=== PATIENT | male | born 1940 | race African-American/Black ===

== ENCOUNTER 2018-01-15 15:55 | Inpatient (IN) | payer MEDICARE, OTHER ==
--- NOTE | 2018-01-15 16:26 | CT ---
NONCONTRAST CT HEAD: 01/15/18 HISTORY: Left facial droop and weakness. COMPARISON: None available. FINDINGS: There is a rounded area of increased density centrally within the michael extending to the level of the pontomedullary junction measuring 2 cm x 1.8 cm most consistent with a hematoma. No additional intra parenchymal or extra-axial hemorrhage is seen. There is no evidence of an acute infarction. There is mild mass effect on the anterior aspect of the fourth ventricle due to the parenchymal hemorrhage. Th ere is no evidence of hydrocephalus. Mild cerebral volume loss is present, not unexpected for the pat ient's age. The visualized paranasal sinuses and mastoid air cells are clear. Calvarial structures are intact. IMPRESSION: 1. Parenchymal hemorrhage in the michael which extends to near the pontomedullary junction with gr eatest measurement of 2 cm. While findings could be related to hypertensive hemorrhage, underlying le rock could not be entirely excluded. The findings do result in mild mass effect on the anterior aspec t of the fourth ventricle. Neurosurgical consultation is recommended. 2. Above findings discussed with Dr. Frazier on 01/15/18 at 1606 hours. POS: [facility]
[2018-01-15 16:38] LABS: #Basophils 0.1 thou/uL (0.0-0.2); #Eosinphils 0.1 thou/uL (0.0-0.7); #Lymphocytes 2.1 thou/uL (1.20-3.40); #Monocytes 0.4 thou/uL (0.11-0.59); #Neutrophils 1.7 thou/uL (1.40-6.50); %Eosinophils 3.1 % (0.0-10.0); %Lymphocytes 47.5 % (21.0-51.0); %Neutrophils 38.4 % (42.0-75.0); Hemoglobin 16.8 g/dL (14.0-18.0); Mean Corpuscular HGB CONC 33.6 g/dL (32.0-36.0); Mean Corpuscular Hemoglobin 30.8 pg (27.0-31.0); Mean Corpuscular Volume 91.8 fL (78.0-98.0); Mean Platelet Volume 7.4 fL (7.4-10.4); Platelet Count 211 thou/uL (130-400); RBC Distribution Width 11.6 % (11.5-14.5); Red Blood Cell (RBC) Count 5.45 mill/uL (4.70-6.10); White Blood Cell (WBC) Count 4.4 thou/uL (4.8-10.8)
--- NOTE | 2018-01-15 16:42 | RAD ---
PORTABLE AP CHEST: Date: 01/15/18 HISTORY: Left-sided weakness and left facial droop. COMPARISON: None available. FINDINGS: Cardiac silhouette is magnified by projection and patient rotation. There is mild atelectasis at the left lung base. Lungs are otherwise clear. Pulmonary vasculature is within normal limits. There is pr ominence in the mediastinal structures, but this likely related to the technique and shallow depth of inspiration accentuating these structures. Mild degenerative changes seen in the spine. IMPRESSION: 1. No acute cardiopulmonary process. 2. Mild atelectasis left lung base. POS: [facility]
[2018-01-15 16:43] LABS: Prothrombin Time 13.1 SEC (12.0-14.7)
[2018-01-15 16:44] LABS: PTT 30.1 SEC (22.9-36.1)
[2018-01-15 16:46] LABS: ALT (SGPT) 15 U/L (8-55); AST (SGOT) 19 U/L (5-34); Albumin 4.2 g/dL (3.4-4.8); Alkaline Phosphatase 93 U/L (40-150); Anion Gap 14 mmol/L (10-20); BUN (Urea Nitrogen) 17 mg/dL (8.4-25.7); Bilirubin, Total 0.5 mg/dL (0.2-1.2); Calc. Creatinine Clearance 0 mL/min (70-130); Calcium 9.7 mg/dL (7.8-10.44); Carbon Dioxide 22 mmol/L (23-31); Chloride 105 mmol/L (98-107); Estimated GFR-MDRD 64; Globulin 3.1 g/dL (2.4-3.5); Glucose 90 mg/dL (83-110); Potassium 3.9 mmol/L (3.5-5.1); Protein, Total 7.3 g/dL (5.8-8.1); Sodium 137 mmol/L (136-145)
[2018-01-15 16:51] LABS: CKMB 5.8 ng/mL (0-6.6); Troponin I Less than 0.010 ng/mL (< 0.028)
[2018-01-15] MEDS ORDERED: Bisacodyl 10 MG SUPP PR PRN (22:54)
[2018-01-15] MEDS ORDERED: Milk Of Magnesia 30 ML UDCUP PO PRN (22:54)
[2018-01-15] MEDS ORDERED: Mag-Al Plus 1200 MG/1200 MG/120 MG/30 ML UDCUP PO PRN (22:54)
[2018-01-15] MEDS ORDERED: Acetaminophen 325 MG TAB PO PRN (22:54)
[2018-01-15] MEDS ORDERED: niCARdipine HCl 25 MG in Sodium Chloride 0.9% 250 ML 240 ML IVPB SCH (23:00)
--- NOTE | 2018-01-16 02:38 | CON ---
DATE OF CONSULTATION: 01/15/2018 HISTORY OF PRESENT ILLNESS: Mr. Verdin is a 77-year-old male, who was life-flighted to our emergency room for altered mental status and possible stroke. The patient's states that last night they had a regular evening. The patient was working on a fence for a friend, they had dinner, went to bed normally. They had a conversation at 5:00 a.m. that was normal. She got up and went about her morn ing as normal, came to check on him a few hours later and he was on the floor. The patient had told her that he had lost function of his extremities and had slid onto the floor. He denies any head or neck injury. The patient did not want to go to the emergency room at this time; however, his symptom s got worse and his called EMS. The patient was life-flighted and is now in our ER, he is resti ng comfortably. He has slurred speech and new decreased hearing. He does have right-sided facial dr ooping along with decreased sensation and movement with left-side both upper and lower extremities. REVIEW OF SYSTEMS: Positive for decreased hearing and slurred speech, new numbness and weakness in t he left upper extremity. PAST MEDICAL HISTORY: The patient denies any past medical history. PAST SURGICAL HISTORY: The patient had a liver biopsy and an orthopedic surgery on the right leg. SOCIAL HISTORY: The patient currently smokes cigarettes daily, approximately half a pack a day. He denies any alcohol or other drug use. He lives with his and they have an active life together w here they live. The patient has been driving safely. He does not use a walker or a cane. The patie nt has 2 children and one that is his 's child. MEDICATIONS: The patient denies any medications. ALLERGIES: The patient denies any known drug allergies. PHYSICAL EXAMINATION: VITAL SIGNS: Blood pressure 137/85, heart rate 58, respiratory rate 16, temperature 97.9, O2 sats 10 0% on room air. CONSTITUTIONAL: The patient is afebrile, pulse is normal, blood pressure is normal. The patient is nontoxic, appears to be pain free. The patient is alert and oriented to person, place, and time. HEAD: Atraumatic, normocephalic. EYES: Pupils are equal, round, and reactive to light. Extraocular movements are intact. No nystagm us. ENT: External ears are normal. Subjectively, the patient has decreased hearing. Mouth, moist mucou s membranes. RESPIRATORY: Regular work of breathing room air. CARDIOVASCULAR: Regular rate and rhythm. NEUROLOGIC: Speech is slurred. There is right-sided facial weakness and droop. The patient has dec reased sensation in the left upper and lower extremities. There is 4/5 weakness on the left. The pa tient is positive for left-sided pronator drift with the right preference. The patient's cranial ner ves II-XII are intact. GCS 15. The patient is moving all 4 extremities. IMAGING: CT head shows a parenchymal hemorrhage in the michael that extends to near the pontomedullary junction with greatest measurement of 2 cm. The findings do result in mild mass effect in the anteri or aspect of the fourth ventricle. ASSESSMENT AND PLAN: Parenchymal hemorrhage of the michael. There is no surgical intervention needed a t this time. We will control the patient's blood pressure. We will keep him comfortable. We will m onitor neuro checks throughout the night and we will get another CT in the morning.
[2018-01-16 04:39] LABS: #Lymphocytes 0.8 thou/uL (1.20-3.40); #Monocytes 0.3 thou/uL (0.11-0.59); #Neutrophils 6.3 thou/uL (1.40-6.50); %Eosinophils 0.3 % (0.0-10.0); %Lymphocytes 10.2 % (21.0-51.0); %Monocytes 3.5 % (0.0-10.0); %Neutrophils 85.9 % (42.0-75.0); Mean Corpuscular HGB CONC 34.6 g/dL (32.0-36.0); Mean Corpuscular Hemoglobin 31.9 pg (27.0-31.0); Mean Corpuscular Volume 92.1 fL (78.0-98.0); Mean Platelet Volume 7.5 fL (7.4-10.4); Platelet Count 205 thou/uL (130-400); RBC Distribution Width 11.5 % (11.5-14.5); Red Blood Cell (RBC) Count 5.03 mill/uL (4.70-6.10); White Blood Cell (WBC) Count 7.4 thou/uL (4.8-10.8)
[2018-01-16] MEDS ORDERED: Prevnar 13-Val Conj/PF 0.5 ML SYRINGE IM ONE (09:00)
--- NOTE | 2018-01-16 09:05 | CT ---
PRELIMINARY REPORT/[facility]/EMERGENTY AFTER-HOURS PROCEDURE CT Head Without Intravenous Contrast EXAM DATE/TIME: 01/16/2018 3:39 AM CLINICAL HISTORY: 77 years old, male; Condition or disease; Other: Hemorrhage; Patient HX: F/u parenchymal hemorrhage TECHNIQUE: Axial computed tomography images of the head/brain without intravenous contrast. COMPARISON: CT Brain WO Con 2018-01-15 15:59 FINDINGS: Brain: Stable 2.5 cm intraparenchymal brainstem hematoma. No new hemorrhage. Mild generalized volume loss of the brain. Ventricles: Normal. No ventriculomegaly. Bones/joints: Normal. No acute fracture. Sinuses: Normal as visualized. No acute sinusitis. Mastoid air cells: Normal as visualized. No mastoid effusion. Soft tissues: Normal. IMPRESSION: Stable 2.5 cm intraparenchymal brainstem hematoma. Thank you for allowing us to participate in the care of your patient. Dictated and Authenticated by: Chandan Valera MD 01/16/2018 5:39 AM Central Time ([place] & [place]) EMERGENT AFTER HOURS CT HEAD: 01/16/2018 HISTORY: Followup intraparenchymal hemorrhage. COMPARISON: 01/15/2018 IMPRESSION: Stable intraparenchymal hemorrhage within the michael and extending to level of the pontomedullary junct ion. No new intraparenchymal or extraaxial hemorrhage is seen. The findings are in agreement with the preliminary report by Gayle. POS: [facility]
--- NOTE | 2018-01-16 10:57 | PRG ---
DATE OF SERVICE: 01/16/2018 I personally interviewed and examined the patient, spoke with the family, reviewed imaging and record s and agree with documentation of Precious Goodwin PA-C, dated 01/15/2018. Briefly, Ricci Verdin was in his usual state of health yesterday when he had neurological decline a nd was brought to the emergency department. In the emergency department, CT examination of the brain revealed a brainstem hemorrhage that was fairly round and circular, approaches the floor of the four th ventricle, centered just to the right of the midline in the mid michael. Overnight, we have watched him in the ICU with apparent medications for nausea, pain, and blood pressure control. He is not on any medicine at home according to the . Mr. Verdin's blood pressures have not elevated. Recorded pressures range from the 100s to the 130s o vernight. There is no fever recorded. His heart rate has been normal. As I entered during this mor griselda, I introduced myself, Mr. Verdin attempts to open his eyes. He has some down gaze preference. He can bring the eyes up to mid gaze. Cranial nerves are not working, including the ocular motor com plex of 3, 4, and 6. Face is weak on the right. The body is weak on the left. The patient can hear me speak and follow commands well. I have not tested lower cranial nerves [facility] Mr. Verdin is arousable, but sleeping. He has upper airway rhonchi. Our plan today is to ensure Mr. Verdin is at low risk for aspiration pneumonia or have Speech Therapy evaluate his swallow, and I do not think he is going to be able to pass today. We should talk to e family about tracheostomy and gastrostomy to prevent aspiration pneumonia. If the lower cranial ne rve function is involved in this hemorrhage, he will be at particular risk, although the blood clot s eems to be above the level of the medulla. His level of consciousness will also determine his safety . I am going to consult General Surgery and prepare them for the possible need for temporary tracheo stomy and gastrostomy. The hemorrhage itself is unlikely to become life-threatening. It is self-limited and stable on seria l CT scans and is not occluding the fourth ventricle that would result in hydrocephalus. The hemorrh age is in a configuration that reminds me of cavernous malformation hemorrhages in the brainstem. It impossible to tell if this is the case, while the blood products are in place. We will need to give it 3-4 weeks for the blood products to resolve themselves and then get an MRI scan. MRI scan can be done with and without contrast to ensure that this is not a tumor hemorrhage or metastasis from else where, but it is more likely to be a vascular malformation. Hypertensive hemorrhages can happen here as well, but his blood pressure has been relatively well controlled without any medication and he is not on any home antihypertensives. Neurosurgery team will continue to follow, but this nonsurgical brainstem hemorrhage can be managed i n the Medicine Service with a followup MRI scan done in our clinic.
--- NOTE | 2018-01-16 13:10 | CON ---
DATE OF CONSULTATION: 01/16/2018 REASON FOR CONSULTATION: Abnormal EKG and recent hemorrhagic stroke. HISTORY OF PRESENT ILLNESS: Mr. Verdin is a 77-year-old gentleman with no previous cardiac issues, w sera recently presented with a hemorrhagic stroke. He was seen and evaluated in the emergency room. Sana ambriz was found to have an abnormal EKG. I have discussed the case with the ER; she felt that it was con sistent with T waves. I did reassure her this is likely related to a recent stroke. After talking to patient and family, no previous history of chest pain, pressure, shortness of breath , or associated symptoms. No previous history of underlying coronary artery disease. PAST MEDICAL HISTORY: None. PAST SURGICAL HISTORY: None. SOCIAL HISTORY: Positive tobacco use. HOME MEDICATIONS: None. ALLERGIES: None. REVIEW OF SYSTEMS: A 10-point review of systems was reviewed and as above, otherwise negative. PHYSICAL EXAMINATION: VITAL SIGNS: Blood pressure 115/74, pulse 73, respirations 20. GENERAL: Patient is a pleasant male, who is in no acute distress. The patient appears his stated ag e. VITAL SIGNS: NEUROLOGIC: Right-sided weakness. Difficulty with speech. HEENT: Sclerae without icterus. Mouth has moist mucous membranes with normal pallor. NECK: No JVD. Carotid upstroke brisk. No bruits bilaterally. LUNGS: Clear to auscultation with unlabored respirations. BACK: No scoliosis or kyphosis. CARDIAC: Regular rate and rhythm with normal S1 and S2. No S3 or S4 noted. No significant rubs, mu rmurs, thrills, or gallops noted throughout the precordium. PMI is not displaced. There is no anne-marie ternal heave. ABDOMEN: Soft, nontender, nondistended. No peritoneal signs present. No hepatosplenomegaly. No ab normal striae. EXTREMITIES: 2+ femoral and 2+ dorsalis pedis pulses. No cyanosis, clubbing, or edema. SKIN: No gross abnormalities. PERTINENT LABORATORY DATA: Hemoglobin 16. Sodium 137, potassium 3.9, creatinine 1.32. EKG: Normal sinus rhythm with ST-T-wave changes suggesting ischemia. IMPRESSION: 1. Abnormal electrocardiogram. 2. Recent hemorrhagic stroke. 3. Tobacco abuse. RECOMMENDATIONS: Mr. Verdin's EKG likely secondary to a recent cerebrovascular accident. Symptoms n ot consistent with acute ischemia. Recommend echo with Doppler and repeating his EKG. Troponins have all been negative. I would contin ue with conservative therapy. Further recommendation per Neurosurgery.
--- NOTE | 2018-01-16 15:03 | CON ---
DATE OF CONSULTATION: 01/16/2018 SUBJECTIVE: Ricci Verdin is a 77-year-old -[place] gentleman from [place], [place] who kenyetta diana seeks care at the [facility]. He was found down at home yesterday. CT of the head shows large parenchymal hemorrhage in the michael extending to the nearby pontomedullary junction. In the ICU. Neurosurgery was consulted. Neurology was consulted. Pulmonary is consulted since in the ICU. His states that he smokes a half a pack a day. No history of alcohol abuse. Takes no medicatio n. He normally goes to the [facility] for care. At the present time, he has got slurred speech and some weakness in his left side. PAST MEDICAL HISTORY: Pertinent for some kind of orthopedic surgery done, some kind of liver biopsy. The is an extremely poor historian. Hypertension. PAST SURGICAL HISTORY: Noted. Alcohol, none. Tobacco, half pack a day. MEDICATIONS: None. ALLERGIES: Apparently none. SOCIAL HISTORY: He is a landscape michell. PHYSICAL EXAMINATION: GENERAL: On examination, he opens his eyes, unable to move his left side, slow speech. He has got f acial paralysis on his left side. VITAL SIGNS: Blood pressure 129/66, respiratory rate 20, satting . CHEST: No wheezing or crackles. CARDIAC: Normal S1, S2, no gallops. ABDOMEN: Soft, no masses. LABORATORY DATA: White count 7,000, hemoglobin and hematocrit 16 and 43, platelet count of 205. Cre atinine 1.32. IMAGING DATA: CT brain repeated this morning shows stable 2.5 cm intraparenchymal brainstem hematoma . IMPRESSION: Brainstem hematoma with left-sided weakness. Noted tobacco abuse. PLAN: Pulmonary will follow while in the ICU. Await input from Neurology. Await input from Speech. Control blood pressure as outlined. Pulmonary or critical care will follow while in the ICU. Consultation direct patient care.
[2018-01-16] MEDS ORDERED: Acetaminophen 1,000 MG in Premix Bag 1 BAG IVPB PRN (16:08)
--- NOTE | 2018-01-16 21:13 | PDOC.PN ---
- Subjective Encounter Start Date: 01/16/18 Encounter Start Time: 10:45 Subjective: pt in bed arousable but aphasic - Objective Vital Signs & Weight: Vital Signs (12 hours) Temp 01/16/18 16:00 99.5 F 01/16/18 12:00 101.0 F H Weight Admit Weight 193 lb 12.581 oz Weight 193 lb 12.581 oz Most Recent Monitor Data Heart Rate from ECG 70 NIBP 125/69 NIBP BP-Mean 84 Respiration from ECG 18 SpO2 98 I&O: 01/15/18 01/16/18 01/17/18 06:59 06:59 06:59 Intake Total 669 1004 Output Total 300 300 Balance 369 704 Result Diagrams: 01/16/18 03:51 01/15/18 16:17 Phys Exam - Physical Examination Neck: no nodes, no JVD, supple, full ROM Respiratory: no wheezing, no rales, no rhonchi, wheezing present, clear to auscultation bilateral Cardiovascular: RRR, no significant murmur, no rub, gallop, irregular Gastrointestinal: soft, non-tender, no distention, positive bowel sounds Musculoskeletal: no edema, pulses present, edema present right side facial droop and left upper and lower ext weakness Dx/Plan (1) Hemorrhagic stroke Code(s): I61.9 - NONTRAUMATIC INTRACEREBRAL HEMORRHAGE, UNSPECIFIED Status: Acute (2) HTN (hypertension) Code(s): I10 - ESSENTIAL (PRIMARY) HYPERTENSION Status: Acute (3) NISH (acute kidney injury) Code(s): N17.9 - ACUTE KIDNEY FAILURE, UNSPECIFIED Status: Acute (4) Acute electrocardiogram changes Code(s): R94.31 - ABNORMAL ELECTROCARDIOGRAM [ECG] [EKG] Status: Acute - Plan pt opens eyes and follows command but is aphasic -: MRI brain ordered -: will continue to monitor labs -: echo ordered * . Review of Systems - Review of Systems Other: unable to obtain - Medications/Allergies Allergies/Adverse Reactions: Allergies Allergy/AdvReac Type Severity Reaction Status Date / Time No Known Drug Allergies Allergy Verified 01/15/18 23:17 Medications: Current Medications Acetaminophen (Tylenol) 650 mg PO Q6H PRN PRN Reason: HEADACHE OR T >38.5 C Al Hydroxide/Mg Hydroxide (Maalox Plus) 30 ml PO QIDPRN PRN PRN Reason: Heartburn or Indigestion Bisacodyl (Dulcolax) 10 mg OR DAILYPRN PRN PRN Reason: Constipation Sodium Chloride (Normal Saline 0.9%) 1,000 mls @ 80 mls/hr IV INF SATURNINO Nicardipine HCl 25 mg/ Sodium (Chloride) 250 mls @ 0 mls/hr IVPB INF SATURNINO; Titrate PRN Reason: Protocol Acetaminophen 1,000 mg/ Device 100 mls @ 400 mls/hr IVPB Q6H PRN PRN Reason: INCREASED TEMP Stop: 01/17/18 16:09 Last Admin: 01/16/18 16:31 Dose: 100 mls Labetalol HCl (Normodyne) 10 mg SLOW IVP Q2H PRN PRN Reason: FOR HYPERTENSION MGMT Magnesium Hydroxide (Milk Of Magnesium) 30 ml PO BIDPRN PRN PRN Reason: Constipation Sodium Chloride (Flush - Normal Saline) 10 ml IVF Q12HR SATURNINO Last Admin: 01/16/18 09:00 Dose: 10 ml Sodium Chloride (Flush - Normal Saline) 10 ml IVF PRN PRN PRN Reason: Saline Flush
--- NOTE | 2018-01-16 22:34 | CON ---
DATE OF CONSULTATION: 01/16/2018 REFERRING PHYSICIAN: Dr. Singh Nichols. REASON FOR CONSULTATION: Intracerebral hemorrhage. HISTORY OF PRESENT ILLNESS: Mr. Verdin is a pleasant 77-year-old -Spanish male who has been considered for evaluation of intracerebral hemorrhage. History is obtained from patient's medical ch art as patient is unable to provide. Apparently, the patient was brought in to the [facility] al after he was found to have altered mental status. The patient's had reported that day before the presentation, he was in his normal state of health. He had gone to bed normally around 5:00 in the morning on the day of admission. They had a conversation and at that time, he was normal. Few h ours later went to check on him, he was found on the floor. He had told his that he felt weak i n both of his lower extremities and fell to the floor for which they had called EMS and patient was b rought to the [facility]. He had a CT scan of the head done, which had shown acute po ntine intracerebral hemorrhage with mild mass effect. Since being admitted, the patient has been not ed to have dysarthria, dysphagia, both upper and lower extremity weakness. PAST MEDICAL HISTORY: None significant. PAST SURGICAL HISTORY: Right leg surgery. SOCIAL HISTORY: He smokes half a pack on a daily basis. He denies alcohol use or illicit drug use. FAMILY HISTORY: Noncontributory. CURRENT MEDICATIONS: Please review MAR. ALLERGIES: No known drug allergies. REVIEW OF SYSTEMS: As mentioned above in HPI, otherwise negative. PHYSICAL EXAMINATION: VITAL SIGNS: Blood pressure 139/71, pulse of 77, temperature of 101.0, respirations of 19, O2 sats 9 0% on room air. GENERAL: Somewhat obtunded -Spanish male in no apparent distress. RESPIRATORY: Clear to auscultation bilaterally. CARDIOVASCULAR: Regular rate and rhythm. NEUROLOGIC: Mental status: The patient is obtunded. He does wake up to my light touch on his chest . He was able to follow some simple commands. Speech and language moderate delay, dysarthric speech noted. Cranial nerves: Pupils are 3 mm and reactive. He has left present. He has a right f acial droop present. Tongue and uvula are midline. Motor exam showed decreased tone of the both upp er and lower extremities. He has a 3-4/5 strength in the right upper and right lower extremity and 2 -3/5 strength in the left upper and left lower extremity. Sensory: He responds to noxious stimuli i n both upper and lower extremities. Babinski, plantar responses extensor bilaterally. LABORATORY DATA: Reviewed, which included CBC, coag panel, CMP, which is significant for BUN of 17 a nd creatinine 1.32, otherwise negative. IMAGING STUDIES: CT head without contrast was reviewed, which showed pontine intracerebral hemorrhag e. IMPRESSION: 1. Pontine intracerebral hemorrhage. 2. Bilateral upper and lower extremity weakness, secondary to #1. 3. Hypertension. ASSESSMENT AND PLAN: Mr. Verdin is a pleasant 77-year-old male who presented with t he confusion and bilateral lower extremity weakness. His CT scan does show central pontine intracere bral hemorrhage. This is likely secondary to hypertension. I would recommend obtaining MRI brain wi th and without contrast to rule out malignancy with hemorrhagic conversion. Continue supportive care . The may need a PEG tube placement. I discussed the case. I have discussed the findings of the CT scan with the patient's sister who was present at bedside and explained the treatment plan. Continu e supportive care.
[2018-01-17] MEDS: Sodium Chloride 0.9% 1,000 ML IV SCH ×2 (06:48→22:32)
[2018-01-17 07:03] LABS: Band 14 % (5-11); Hemoglobin 15.4 g/dL (14.0-18.0); Lymphocytes 16 % (21-51); MDiff Complete? YES; Mean Corpuscular HGB CONC 32.9 g/dL (32.0-36.0); Mean Corpuscular Hemoglobin 30.4 pg (27.0-31.0); Mean Corpuscular Volume 92.4 fL (78.0-98.0); Mean Platelet Volume 7.6 fL (7.4-10.4); Monocytes 7 % (0-10); Neutrophil 63 % (42-75); PLT Morphology Comment Appears Adequate; Platelet Count 183 thou/uL (130-400); RBC Distribution Width 11.6 % (11.5-14.5); Red Blood Cell (RBC) Count 5.06 mill/uL (4.70-6.10); White Blood Cell (WBC) Count 10.6 thou/uL (4.8-10.8)
--- NOTE | 2018-01-17 08:07 | PDOC.CTH ---
Cardiology Progress Note - Subjective More somnolent today. EKG improved. Recent echo with normal EF - Objective Vital Signs Temp 01/17/18 07:00 100.0 F H 01/17/18 04:00 98.9 F 01/17/18 00:00 98.9 F Admit Weight 193 lb 12.581 oz Weight 193 lb 12.581 oz 01/16/18 01/17/18 01/18/18 06:59 06:59 06:59 Intake Total 669 2034 Output Total 300 300 1 Balance 369 1734 -1 - Physical Examination General/Neuro: NAD Neck: no JVD present Lungs: CTA, unlabored respirations Heart: PMI normal, RRR Abdomen: no HSM, NT/ND, soft Extremities: + femoral B - Labs Result Diagrams: 01/17/18 06:19 01/15/18 16:17 Troponin/CKMB CK-MB (CK-2) 5.8 ng/mL (0-6.6) 01/15/18 16:17 Troponin I Less than 0.010 ng/mL (< 0.028) 01/15/18 16:17 - Assessment/Plan EKG changes Hemmorhagic stroke Echo with normal EF; No WMA present No symptoms of angina in the past with negative troponin EKG likely secondary to recent CVA No new CV recommendations Will follow peripherally
--- NOTE | 2018-01-17 10:41 | PRG ---
DATE OF SERVICE: 01/17/2018 I saw Mr. Verdin in his ICU room this morning. He has failed a swallow study yesterday, as I thought he would. He remains off the ventilator, but having a slightly more difficulty with secretions and needing to be suctioned. His T-max was 100.1 degrees Fahrenheit. Overnight, his blood pressures have been in the 110s to 150s . I see Mr. Verdin opens his eyes a bit better for me today. He has upgaze and downgaze today. He has very poor eye excursion in either direction. He has facial weakness, facial anesthesia, and decr eased hearing all on the right side. I suspect the lower cranial nerves are not working on that side either. The left body is weak, but moving. He has good strength and follows commands quite well on the right. I think Mr. Verdin had cranial nerve dysfunction from brainstem hemorrhage as well as the pyramidal w eakness on the left side of the body. He is going to need extensive rehabilitation from this, but te mporarily may need a tracheostomy and gastrostomy. I discussed that with his yesterday and she herself has had a tracheostomy. She is not opposed to putting one in temporarily and so we made cons ultation to the surgical service for that. Hopefully, he will regain some of the lower cranial nerve function as the clot recedes. An MRI scan will be warranted to see the underlying cause. This coul d be hypertensive, could be a cavernous malformation, an AVM or tumor or some other etiology. Prashant r, with blood products present at the site of the hemorrhage, it would be unusual to find the underly ing cause on early MRI scan. I am suggesting 1 in 3-4 weeks as the blood recedes. For now, the plan should be to get him through this hospitalization and into rehabilitation as safe as possible and wi thout pneumonia. From a neurosurgical perspective, we are not going to offer surgical intervention for this hemorrhage . We will be happy to revisit with the patient and family should the need arise, but I noticed that the Neurology team and Medicine team are doing an excellent job.
[2018-01-17] MEDS: Labetalol HCl 100 MG/20 ML VIAL SLOW IVP PRN ×3 (10:44→17:17)
[2018-01-17 12:14] LABS: Anion Gap 15 mmol/L (10-20); BUN (Urea Nitrogen) 16 mg/dL (8.4-25.7); Calc. Creatinine Clearance 69 mL/min (70-130); Calcium 9.3 mg/dL (7.8-10.44); Carbon Dioxide 21 mmol/L (23-31); Chloride 108 mmol/L (98-107); Estimated GFR-MDRD 75; Glucose 87 mg/dL (83-110); Potassium 4.2 mmol/L (3.5-5.1); Sodium 140 mmol/L (136-145)
--- NOTE | 2018-01-17 14:47 | PRG ---
DATE OF SERVICE: 01/17/2018 SUBJECTIVE: Lambert this morning in the ICU with pulse of 99, blood pressure 158/79, sats 90% on room air, respiratory rate 25. PHYSICAL EXAMINATION: GENERAL APPEARANCE: He is awake, but encephalopathic. HEENT: He has got a right-sided facial droop and he has got weakness in the left side. Does move lo wer extremities. CHEST: Anterior rhonchi. CARDIAC: Normal S1, S2, no gallops. ABDOMEN: Soft, no masses. IMPRESSION: Pontine hemorrhage, bilateral lower extremity weakness and hypertension. PLAN: Dr. Malcolm discussed with the . Prognosis is guarded. If he is a FULL CODE, he is goi ng to need a need trach and PEG. Unlikely, he is going to pass a swallow study. Try and maintain bl ood pressure systolic less than 150. Supportive care. Will follow.
--- NOTE | 2018-01-17 17:11 | ULT ---
BILATERAL LOWER EXTREMITY VENOUS DOPPLER WITH SPECTRAL ANALYSIS AND COLOR FLOW EVALUATION: Date: 01-17-18 History: Intraparenchymal hemorrhage. Immobility. High risk patient for development of deep vein thro mbosis. Stroke. FINDINGS: Grayscale, color flow, doppler evaluation and spectral analysis of the bilateral lower extremity veno us structures is performed with 2D imaging. The bilateral lower extremity common femoral, superficial femoral, popliteal, posterior tibial, most proximal greater saphenous and profunda femoral veins are imaged. There is normal lumen compressibility, flow, and augmentation in the visualized deep venous structure s of the bilateral lower extremities. IMPRESSION: No evidence of a DVT involving the visualized deep venous structures bilateral lower extremities. POS: [facility]
--- NOTE | 2018-01-17 18:37 | PDOC.PN ---
- Subjective Encounter Start Date: 01/17/18 Encounter Start Time: 13:00 Subjective: pt up in bed appears drowsy,easily arousable has right facial droop - Objective Vital Signs & Weight: Vital Signs (12 hours) Temp Pulse Resp BP Pulse Ox 01/17/18 17:17 62 156/79 H 01/17/18 16:00 100.0 F H 01/17/18 13:02 77 159/79 H 01/17/18 12:00 100.0 F H 01/17/18 10:44 77 150/76 H 01/17/18 08:00 100.0 F H 67 21 H 96 01/17/18 07:00 100.0 F H Weight Admit Weight 193 lb 12.581 oz Weight 193 lb 12.581 oz Most Recent Monitor Data Heart Rate from ECG 66 NIBP 144/83 NIBP BP-Mean 88 Respiration from ECG 20 SpO2 98 I&O: 01/16/18 01/17/18 01/18/18 06:59 06:59 06:59 Intake Total 669 2034 893 Output Total 300 300 4 Balance 369 1534 889 Result Diagrams: 01/17/18 06:19 01/17/18 06:19 Dx/Plan (1) Hemorrhagic stroke Code(s): I61.9 - NONTRAUMATIC INTRACEREBRAL HEMORRHAGE, UNSPECIFIED Status: Acute (2) HTN (hypertension) Code(s): I10 - ESSENTIAL (PRIMARY) HYPERTENSION Status: Acute (3) NISH (acute kidney injury) Code(s): N17.9 - ACUTE KIDNEY FAILURE, UNSPECIFIED Status: Acute (4) Acute electrocardiogram changes Code(s): R94.31 - ABNORMAL ELECTROCARDIOGRAM [ECG] [EKG] Status: Acute - Plan per neurosurg note will need peg since he failed his swallow eval -: pt has significant secretions risk for aspiration may need trach -: pt has elevated bands will check cxr in am * . Review of Systems - Review of Systems Other: unable to obtain - Medications/Allergies Allergies/Adverse Reactions: Allergies Allergy/AdvReac Type Severity Reaction Status Date / Time No Known Drug Allergies Allergy Verified 01/15/18 23:17 Medications: Current Medications Acetaminophen (Tylenol) 650 mg PO Q6H PRN PRN Reason: HEADACHE OR T >38.5 C Al Hydroxide/Mg Hydroxide (Maalox Plus) 30 ml PO QIDPRN PRN PRN Reason: Heartburn or Indigestion Bisacodyl (Dulcolax) 10 mg [place] DAILYPRN PRN PRN Reason: Constipation Sodium Chloride (Normal Saline 0.9%) 1,000 mls @ 80 mls/hr IV INF SATURNINO Last Admin: 01/17/18 06:48 Dose: 1,000 mls Nicardipine HCl 25 mg/ Sodium (Chloride) 250 mls @ 0 mls/hr IVPB INF SATURNINO; Titrate PRN Reason: Protocol Labetalol HCl (Normodyne) 10 mg SLOW IVP Q2H PRN PRN Reason: FOR HYPERTENSION MGMT Last Admin: 01/17/18 17:17 Dose: 10 mg Magnesium Hydroxide (Milk Of Magnesium) 30 ml PO BIDPRN PRN PRN Reason: Constipation Sodium Chloride (Flush - Normal Saline) 10 ml IVF Q12HR SATURNINO Last Admin: 01/17/18 09:49 Dose: 10 ml Sodium Chloride (Flush - Normal Saline) 10 ml IVF PRN PRN PRN Reason: Saline Flush
[2018-01-18] MEDS ORDERED: CEFAZOLIN/Water 2 GM/20 ML SYRINGE SLOW IVP SCH (07:00)
[2018-01-18] MEDS: Labetalol HCl 100 MG/20 ML VIAL SLOW IVP PRN ×3 (07:24→11:11)
--- NOTE | 2018-01-18 08:51 | PRG ---
DATE OF SERVICE: 01/18/2018 He is a 77-year-old gentleman. This morning he is verbalizing, but is unable to move his left side. He is having difficulty handling his secretions. His is at the bedside. He failed a swallow study. PHYSICAL EXAMINATION: VITAL SIGNS: Pulse 73, blood pressure is 160/73, sats 90%, respirations 25. CHEST: Chest reveals minimal rhonchi. CARDIAC: Normal S1, S2, no gallops. ABDOMEN: Soft, no masses. IMPRESSION: 1. Status post brainstem infarct with left-sided weakness. 2. Dysphagia. 3. Difficulty protecting his airways. PLAN: Surgery was consulted for a trach and PEG to protect his airways. Otherwise, in the meantime, continue supportive care, neb treatments. We will follow. One-half hour of critical care time.
[2018-01-18] MEDS ORDERED: cloNIDine 0.1 MG TAB PO SCH ×2 (09:00→14:00)
--- NOTE | 2018-01-18 10:09 | RAD ---
CHEST 1 VIEW: Date: 01/18/18 HISTORY: Aspiration. COMPARISON: 01/15/18. FINDINGS: Cardiac silhouette magnified by projection. Pulmonary vasculature accentuated by shallow inspiration and upper limits of normal. New ill-defined infiltrate projects over the right infrahilar region. No evidence of pneumothorax. certified meeting professional leads overlie the chest. IMPRESSION: New right posterior basilar infiltrate. This is in a location consistent with aspiration. Continued r adiographic follow-up to clearing is suggested. POS: [facility]
--- NOTE | 2018-01-18 10:32 | CON ---
DATE OF CONSULTATION: 01/18/2018 REASON FOR CONSULTATION: Tracheostomy and PEG tube placement. HISTORY OF PRESENT ILLNESS: Mr. Verdin is a 77-year-old gentleman, who suffered a spontaneous stroke . He had had difficulties during his and repeatedly failed reevaluation. His neurosurg moustapha feels that he will be unable to safely manage for a significant period of time due to impinging on the cranial nerves. He has recommended tracheostomy and PEG tube placement for airway protection and management of secretions and for nutritional support. The patient and his are in agreement. PAST MEDICAL HISTORY: None, although he does not go to the doctor. PAST SURGICAL HISTORY: Leg surgery. No previous abdominal surgery. MEDICATIONS: No outpatient medications. ALLERGIES: No known allergies. SOCIAL HISTORY: The patient lives with his and had been driving up until his recent stroke as w ell as ambulating independently. He did continues to smoke tobacco up until his illness, but does no t have any other drug or alcohol use. REVIEW OF SYSTEMS: Not obtainable due to the patient's , denies shortness of breath or abdomina l pain. PHYSICAL EXAMINATION: VITAL SIGNS: T-max of 101, T-current 100, heart rate 69, blood pressure 137/86, respiratory rate 19 and 20, 97% saturated via nasal cannula. GENERAL: Reveals a pleasant elderly gentleman who have difficulty maintaining eye contact as of yet, in distress. He has a facial droop on the right side and unclear speech, although he can converse w ith repeating some sentences. NECK: Supple, without lymphadenopathy. HEART: Regular in its rate and rhythm. He does have some crackles in his bases bilaterally. ABDOMEN: Soft, nontender, nondistended, . There were no masses or hernias. EXTREMITIES: Warm and well perfused. Minimally . NEUROLOGIC: He has the aforementioned facial droop and slurred speech. He also has left-sided weakn ess, although moves all four extremities. IMAGING: CTA of the head showed parenchymal hemorrhage in the michael. ASSESSMENT: Hemorrhagic stroke with anticipated prolonged need for airway protection . I disc ussed the procedure and its inherent risks in detail with his . The risks include, but are not l imited to bleeding, infection, risks of anesthesia, loss of airway, and injury to other intra-abdomin al organs such as colon, small bowel, . The patient's expressed understanding and agrees t o proceed.
--- NOTE | 2018-01-18 13:36 | EKG ---
Test Reason : ROUTINE Blood Pressure : / mmHG Vent. Rate : 071 BPM Atrial Rate : 071 BPM P-R Int : 150 ms QRS Dur : 088 ms QT Int : 420 ms P-R-T Axes : 029 031 202 degrees QTc Int : 456 ms Sinus rhythm with Premature atrial complexes T wave abnormality, consider anterolateral ischemia Abnormal ECG No previous ECGs available Confirmed by DR. Joan JOYA MD ([id number]) on 01/18/2018 1:35:51 PM Referred By: FLASH Confirmed By:DR. Joan JOYA MD
[2018-01-18] MEDS ORDERED: Lidocaine 1% (PF) 30 ML VIAL ONE (14:18)
[2018-01-18] MEDS ORDERED: Fentanyl 100 MCG/2 ML VIAL ONE (14:22)
--- NOTE | 2018-01-18 14:51 | CT ---
CT OF BRAIN PERFORMED WITHOUT CONTRAST ENHANCEMENT: Date: 01/18/18 HISTORY: Follow-up of hemorrhagic stroke. FINDINGS: The area of brainstem hemorrhage is again demonstrated. It appears stable as compared to the prior ex amination. Ventricular and cisternal system shows generalized atrophy. The ventricular size is unchan ged. Mastoid air cells and visualized sinuses are clear. IMPRESSION: Stable brainstem hemorrhage. POS: [facility]
[2018-01-18] MEDS ORDERED: Succinylcholine Chloride 20 MG/ML 10 ml SYRINGE FS ONE (15:13)
[2018-01-18] MEDS ORDERED: PROPOFOL 200 MG/20 ML VIAL ONE (15:13)
[2018-01-18] MEDS ORDERED: PHENYLEPHRINE-NS 100 MCG/ML 10 ML SYRINGE ONE (15:13)
[2018-01-18] MEDS ORDERED: Lidocaine 1% PF 5 ML VIAL ONE (15:13)
[2018-01-18] MEDS ORDERED: Bacitracin Zinc Ointment 30 gm TUBE ONE (15:30)
[2018-01-18 17:02] LABS: CO2 Tension 43.1 mmHg (35.0-45.0); pH, Arterial 7.37 (7.35-7.45)
[2018-01-18 17:03] LABS: Actual Bicarbonate (HCO3a) 24.2 mEq/L (22-28); Base Excess (BEa) -1.2 mEq/L (-2.0 to +3.0); Hemoglobin (Hb) 15.3 g/dL (14.0-18.0)
[2018-01-18 17:04] LABS: Calcium, Ionized 1.2 mmol/L (1.12-1.30)
[2018-01-18 17:05] LABS: Puncture Site RRA
[2018-01-18 17:06] LABS: ALV-art Gradient 94.025 (0-20)
[2018-01-18] MEDS: Piperacillin/Tazobactam 3.375 GM in Sodium Chloride 0.9% 100 ML IVPB SCH ×2 (17:14→21:48)
[2018-01-18] MEDS ORDERED: Propofol BOLUS 1,000 MG/100 ML VIAL IV PRN (18:18)
[2018-01-18] MEDS ORDERED: Lorazepam 2 MG/ML VIAL SLOW IVP PRN (18:18)
[2018-01-18] MEDS ORDERED: DISCONTINUE PREVIOUS NARCOTIC PAIN MEDICATIONS AND BENZODIAZEPINES FS SCH (18:18)
[2018-01-18] MEDS ORDERED: Propofol 1,000 MG/100 ML VIAL IV PRN (18:18)
[2018-01-18] MEDS ORDERED: fentaNYL Citrate/PF 2,000 MCG in Sodium Chloride 0.9% 60 ML IV SCH (18:18)
[2018-01-18] MEDS ORDERED: Fentanyl BOLUS 250 ML IVPB PRN (18:18)
[2018-01-18] MEDS ORDERED: Fentanyl CADD 250 ML IVPB SCH (18:18)
[2018-01-18] MEDS: Famotidine/PF 20 mg/2ml Vial SLOW IVP SCH (21:48)
[2018-01-18] MEDS: cloNIDine 0.1 MG TAB PO SCH (21:49)
[2018-01-19] MEDS: Piperacillin/Tazobactam 3.375 GM in Sodium Chloride 0.9% 100 ML IVPB SCH ×4 (04:05→21:27)
[2018-01-19] MEDS: Sodium Chloride 0.9% 1,000 ML IV SCH ×2 (04:10→09:05)
[2018-01-19] MEDS: Labetalol HCl 100 MG/20 ML VIAL SLOW IVP PRN (04:10)
[2018-01-19 06:09] LABS: Anion Gap 12 mmol/L (10-20); BUN (Urea Nitrogen) 14 mg/dL (8.4-25.7); Calc. Creatinine Clearance 74 mL/min (70-130); Calcium 9.3 mg/dL (7.8-10.44); Carbon Dioxide 24 mmol/L (23-31); Chloride 109 mmol/L (98-107); Estimated GFR-MDRD 82; Glucose 122 mg/dL (83-110); Phosphorus 2.6 mg/dL (2.3-4.7); Potassium 3.9 mmol/L (3.5-5.1); Sodium 141 mmol/L (136-145)
[2018-01-19 06:18] LABS: Hemoglobin 14.4 g/dL (14.0-18.0); Lymphocytes 17 % (21-51); MDiff Complete? YES; Mean Corpuscular HGB CONC 33.8 g/dL (32.0-36.0); Mean Corpuscular Hemoglobin 31.1 pg (27.0-31.0); Mean Corpuscular Volume 91.9 fL (78.0-98.0); Mean Platelet Volume 7.7 fL (7.4-10.4); Monocytes 6 % (0-10); Neutrophil 77 % (42-75); PLT Morphology Comment Appears Adequate; Platelet Count 188 thou/uL (130-400); RBC Distribution Width 11.4 % (11.5-14.5); Red Blood Cell (RBC) Count 4.64 mill/uL (4.70-6.10); White Blood Cell (WBC) Count 9.4 thou/uL (4.8-10.8)
[2018-01-19] MEDS ORDERED: DC Sedation Protocol FS ONE (08:17)
--- NOTE | 2018-01-19 08:34 | PRG ---
DATE OF SERVICE: 01/19/2018 He is on no sedation. He opens his eyes. He is status post trach and PEG as per the family's wishes , status post brainstem hemorrhage. PHYSICAL EXAMINATION: VITAL SIGNS: Pulse 75, blood pressure 130/80, sats 90%, respirations 25. Nurses tell me he is having a lot of secretions. I am in the process of ordering a chest x-ray. GENERAL: Otherwise, he opens his eyes. CHEST: Chest reveals bilateral rhonchi and crackles. CARDIAC: Normal S1, S2, no gallops. ABDOMEN: Soft. EXTREMITIES: No edema. LABORATORY DATA: White count 9000, H&H 14 and 42, platelet count normal. PO2 64, pCO2 43.37, rate o f 10. Electrolytes are normal. IMPRESSION: 1. Brainstem hemorrhage, status post trach and PEG. 2. Encephalopathy. PLAN: At this stage, continue supportive care and PT. His renal function seems to have improved. Eventually placement. One-half hour critical care time.
[2018-01-19] MEDS: cloNIDine 0.1 MG TAB PO SCH ×2 (08:46→21:15)
[2018-01-19] MEDS: Famotidine/PF 20 mg/2ml Vial SLOW IVP SCH ×2 (08:47→21:15)
--- NOTE | 2018-01-19 09:57 | RAD ---
CHEST ONE VIEW: HISTORY: Ventilated patient. COMPARISON: Chest radiograph from the prior day. FINDINGS: A new tracheostomy is in place. Atelectatic changes in both lower lobes. Elevation of the left karla diaphragm. Small left effusion. The cardiac silhouette is similar. IMPRESSION: Slight worsening of lower lobe air space opacities, suggesting aspiration or atelectasis. POS: [facility]
[2018-01-19] MEDS: Scopolamine 1.5 mg/72 hour Patch TD SCH (16:20)
[2018-01-19] MEDS ORDERED: Sodium Bicarbonate Tab 325 MG TAB PER TUBE PRN (18:44)
[2018-01-19] MEDS ORDERED: Pancrelipase DR 12000 1 CAP FS PRN (18:44)
--- NOTE | 2018-01-19 22:07 | PDOC.OP ---
Operative Note - Operative Note Operative Note: PROCEDURE: Tracheostomy and PEG tube placement SURGEON: Coby Wise M.D. DATE OF PROCEDURE: 01/18/2018 PREOPERATIVE DIAGNOSIS: Hemorrhagic pontine stroke with inability to protect airway or swallow. POSTOPERATIVE DIAGNOSIS: Hemorrhagic pontine stroke with inability to protect airway or swallow HISTORY: Patient is status post hemorrhagic pontine stroke. He has excessive secretions and difficulty protecting his airway and is unable to safely swallow. The tracheostomy tube and PEG tube has been requested by his neurosurgeon. PROCEDURE IN DETAIL: After informed consent was obtained and appropriate preoperative antibiotics were administered the patient was taken to the operating room and placed in supine position and general endotracheal anesthesia administered through the pre-existing endotracheal tube. The neck and chest were prepped and draped in the standard sterile fashion and local anesthesia infused the skin and subcutaneous tissues anterior to the trachea. A longitudinal incision was made and dissection carried down to the pretracheal fascia, dividing the isthmus of the thyroid with electrocautery. The cricoid cartilage and the first 3 tracheal rings were clearly exposed. Inspiratory oxygen levels were turned down by anesthesia to the lowest possible level prior to any entry into the trachea and no electrocautery was used after that point. Two traction sutures were placed around the second tracheal ring laterally and an incision made between the second and third tracheal rings. A tracheal class 1 owner operator was used to dilate the tracheostomy and the endotracheal tube was withdrawn to just above the level of the tracheostomy. A #8 Shiley tracheostomy was placed under direct vision into the trachea and the balloon was inflated. The inner obturator was removed and an inner cannula placed. The extension tubing was passed off the field to anesthesia and equal inspiratory and expiratory volumes were confirmed. End tidal CO2 was confirmed as well. Hemostasis at the operative site was confirmed and the old endotracheal tube was removed. Surgicel was placed into the wound as a precaution. The skin was reapproximated superior and inferior to the tracheostomy with Prolene sutures and the tracheostomy secured to the skin in 4 locations. A gauze dressing was placed around the tracheostomy and tracheostomy collar was secured. Attention was then turned to the PEG tube placement. The gastroscope was passed down into the stomach under direct vision. The esophagus was grossly normal and the stomach insufflated normally. A finger impulse was clearly seen in the antrum with palpation in the left upper quadrant. This skin was sterilely prepped and local anesthesia infused. The skin incision was made and a needle and sheath placed into the gastric lumen under direct vision of the gastroscope. The needle was removed leaving the sheath in place and a wire advanced through the sheath. The wire was grasped by the gastroscope and drawn out through the mouth. This was secured to the 20 Polish pull PEG which was then drawn back out through the abdominal wall and secured to the skin with the outer flange, with the skin appropriately positioned at 3 cm. The tapered portion of the pull PEG was cut off and the adapter connected. The PEG was dressed with antibiotic ointment and gauze and tape and secured under the abdominal binder. The patient was taken back to the ventilator in stable condition. Estimated blood loss minimal. There were no complications. There were no specimens..
--- NOTE | 2018-01-19 22:10 | PDOC.GSPN ---
Surgery Progress Note: Subj - Subjective Narrative: Patient is awake but not answering questions. He has copious secretions at the tracheostomy site is clean. PEG tube has minimal drainage. He denies nausea or abdominal pain. Tube feeds can be started checking residuals. Surgery Progress Note: Obj - Vital signs Vital signs: Vital Signs - Most Recent Temp Pulse Resp BP Pulse Ox 99.5 F 72 24 H 159/83 H 100 01/19/18 20:00 01/19/18 18:57 01/19/18 18:57 01/19/18 21:15 01/19/18 18:57 Surgery Progress Note: Results - Labs Result Diagrams: 01/19/18 05:10 01/19/18 05:10
[2018-01-20] MEDS: Labetalol HCl 100 MG/20 ML VIAL SLOW IVP PRN (01:35)
[2018-01-20] MEDS: Piperacillin/Tazobactam 3.375 GM in Sodium Chloride 0.9% 100 ML IVPB SCH ×4 (04:44→22:25)
--- NOTE | 2018-01-20 07:37 | PDOC.PN ---
- Subjective Encounter Start Date: 01/18/18 Encounter Start Time: 08:00 Subjective: pt up in bed drowsy - Objective Vital Signs & Weight: Vital Signs (12 hours) Temp Pulse Resp BP Pulse Ox 01/20/18 04:00 99.7 F H 01/20/18 01:35 72 152/86 H 01/20/18 00:00 99.9 F H 01/19/18 23:24 75 24 H 95 01/19/18 21:15 159/83 H 01/19/18 20:00 99.5 F 70 23 H 93 L Weight Admit Weight 193 lb 12.581 oz Weight 192 lb 14.472 oz Most Recent Monitor Data Heart Rate from ECG 75 NIBP 138/82 NIBP BP-Mean 102 Respiration from ECG 22 SpO2 95 I&O: 01/19/18 01/20/18 01/21/18 06:59 06:59 06:59 Intake Total 1902 2578 Output Total 2 5 Balance 1900 2573 Result Diagrams: 01/19/18 05:10 01/19/18 05:10 Phys Exam - Physical Examination HEENT: PERRLA, moist MMs, sclera anicteric, TM's clear, oral pharynx no lesions , 2+ tonsils Neck: no nodes, no JVD, supple, full ROM mild rhonchi all over Cardiovascular: RRR, no significant murmur, no rub, gallop, irregular Gastrointestinal: soft, non-tender, no distention, positive bowel sounds Musculoskeletal: no edema, pulses present, edema present right facial droop and left upper and lower ext weakness Dx/Plan (1) Hemorrhagic stroke Code(s): I61.9 - NONTRAUMATIC INTRACEREBRAL HEMORRHAGE, UNSPECIFIED Status: Acute (2) HTN (hypertension) Code(s): I10 - ESSENTIAL (PRIMARY) HYPERTENSION Status: Acute (3) NISH (acute kidney injury) Code(s): N17.9 - ACUTE KIDNEY FAILURE, UNSPECIFIED Status: Acute (4) Acute electrocardiogram changes Code(s): R94.31 - ABNORMAL ELECTROCARDIOGRAM [ECG] [EKG] Status: Acute - Plan plans to undergo trach and peg -: will continue abx for now concerns for aspiration -: repeat ct head no worsening bleed * . Review of Systems - Review of Systems Other: unable to obtain - Medications/Allergies Allergies/Adverse Reactions: Allergies Allergy/AdvReac Type Severity Reaction Status Date / Time No Known Drug Allergies Allergy Verified 01/15/18 23:17 Medications: Current Medications Acetaminophen (Tylenol) 650 mg PO Q6H PRN PRN Reason: HEADACHE OR T >38.5 C Al Hydroxide/Mg Hydroxide (Maalox Plus) 30 ml PO QIDPRN PRN PRN Reason: Heartburn or Indigestion Albuterol/Ipratropium (Duoneb) 3 ml NEB [id number] SATURNINO Last Admin: 01/19/18 23:24 Dose: 3 ml Lipase/Protease/Amylase ([place] [id number]) 1 cap FS .PER PROTOCOL PRN PRN Reason: TUBE OCCLUSION PROTOCOL Bisacodyl (Dulcolax) 10 mg [place] DAILYPRN PRN PRN Reason: Constipation Cefazolin Sodium (Ancef) 2 gm SLOW IVP WILLCALL SATURNINO Clonidine (Catapres) 0.1 mg PO BID SATURNINO Last Admin: 01/19/18 21:15 Dose: 0.1 mg Famotidine (Pepcid) 20 mg SLOW IVP Q12HR SATURNINO Last Admin: 01/19/18 21:15 Dose: 20 mg Sodium Chloride (Normal Saline 0.9%) 1,000 mls @ 80 mls/hr IV INF SATURNINO Last Admin: 01/19/18 09:05 Dose: 1,000 mls Nicardipine HCl 25 mg/ Sodium (Chloride) 250 mls @ 0 mls/hr IVPB INF SATURNINO; Titrate PRN Reason: Protocol Piperacillin Sod/Tazobactam (Sod 3.375 gm/ Sodium Chloride) 100 mls @ 200 mls/ hr IVPB 0400,1000,1600,2200 SATURNINO Last Admin: 01/20/18 04:44 Dose: 100 mls Labetalol HCl (Normodyne) 10 mg SLOW IVP Q2H PRN PRN Reason: FOR HYPERTENSION MGMT Last Admin: 01/20/18 01:35 Dose: 10 mg Magnesium Hydroxide (Milk Of Magnesium) 30 ml PO BIDPRN PRN PRN Reason: Constipation Scopolamine (Transderm Scop) 1.5 mg TD Q3D SATURNINO Last Admin: 01/19/18 16:20 Dose: 1.5 mg Sodium Bicarbonate (Bicarbonate, Sodium) 650 mg PER TUBE .PER PROTOCOL PRN PRN Reason: ENTERAL TUBE OCCLUSION Sodium Chloride (Flush - Normal Saline) 10 ml IVF Q12HR SATURNINO Last Admin: 01/19/18 21:15 Dose: 10 ml Sodium Chloride (Flush - Normal Saline) 10 ml IVF PRN PRN PRN Reason: Saline Flush
--- NOTE | 2018-01-20 07:42 | PDOC.PN ---
- Subjective Encounter Start Date: 01/19/18 Encounter Start Time: 15:00 Subjective: pt s/p trach and peg - Objective Vital Signs & Weight: Vital Signs (12 hours) Temp Pulse Resp BP Pulse Ox 01/20/18 04:00 99.7 F H 01/20/18 01:35 72 152/86 H 01/20/18 00:00 99.9 F H 01/19/18 23:24 75 24 H 95 01/19/18 21:15 159/83 H 01/19/18 20:00 99.5 F 70 23 H 93 L Weight Admit Weight 193 lb 12.581 oz Weight 192 lb 14.472 oz Most Recent Monitor Data Heart Rate from ECG 75 NIBP 138/82 NIBP BP-Mean 102 Respiration from ECG 22 SpO2 95 I&O: 01/19/18 01/20/18 01/21/18 06:59 06:59 06:59 Intake Total 1902 2578 Output Total 2 5 Balance 1900 2573 Result Diagrams: 01/19/18 05:10 01/19/18 05:10 Phys Exam - Physical Examination HEENT: PERRLA, moist MMs, sclera anicteric, TM's clear, oral pharynx no lesions , 2+ tonsils Neck: no nodes, no JVD, supple, full ROM Respiratory: no wheezing, no rales, no rhonchi, wheezing present, clear to auscultation bilateral Cardiovascular: RRR, no significant murmur, no rub, gallop, irregular Gastrointestinal: soft, non-tender, no distention, positive bowel sounds Dx/Plan (1) Hemorrhagic stroke Code(s): I61.9 - NONTRAUMATIC INTRACEREBRAL HEMORRHAGE, UNSPECIFIED Status: Acute (2) HTN (hypertension) Code(s): I10 - ESSENTIAL (PRIMARY) HYPERTENSION Status: Acute (3) NISH (acute kidney injury) Code(s): N17.9 - ACUTE KIDNEY FAILURE, UNSPECIFIED Status: Acute (4) Acute electrocardiogram changes Code(s): R94.31 - ABNORMAL ELECTROCARDIOGRAM [ECG] [EKG] Status: Acute - Plan pt s/p trach and peg today. -: will continue iv abx for now * . Review of Systems - Review of Systems Other: unable to perform - Medications/Allergies Allergies/Adverse Reactions: Allergies Allergy/AdvReac Type Severity Reaction Status Date / Time No Known Drug Allergies Allergy Verified 01/15/18 23:17 Medications: Current Medications Acetaminophen (Tylenol) 650 mg PO Q6H PRN PRN Reason: HEADACHE OR T >38.5 C Al Hydroxide/Mg Hydroxide (Maalox Plus) 30 ml PO QIDPRN PRN PRN Reason: Heartburn or Indigestion Albuterol/Ipratropium (Duoneb) 3 ml NEB [id number] SATURNINO Last Admin: 01/19/18 23:24 Dose: 3 ml Lipase/Protease/Amylase ([place] [id number]) 1 cap FS .PER PROTOCOL PRN PRN Reason: TUBE OCCLUSION PROTOCOL Bisacodyl (Dulcolax) 10 mg [place] DAILYPRN PRN PRN Reason: Constipation Cefazolin Sodium (Ancef) 2 gm SLOW IVP WILLCALL SATURNINO Clonidine (Catapres) 0.1 mg PO BID SATURNINO Last Admin: 01/19/18 21:15 Dose: 0.1 mg Famotidine (Pepcid) 20 mg SLOW IVP Q12HR SATURNINO Last Admin: 01/19/18 21:15 Dose: 20 mg Sodium Chloride (Normal Saline 0.9%) 1,000 mls @ 80 mls/hr IV INF SATURNINO Last Admin: 01/19/18 09:05 Dose: 1,000 mls Nicardipine HCl 25 mg/ Sodium (Chloride) 250 mls @ 0 mls/hr IVPB INF SATURNINO; Titrate PRN Reason: Protocol Piperacillin Sod/Tazobactam (Sod 3.375 gm/ Sodium Chloride) 100 mls @ 200 mls/ hr IVPB 0400,1000,1600,2200 SATURNINO Last Admin: 01/20/18 04:44 Dose: 100 mls Labetalol HCl (Normodyne) 10 mg SLOW IVP Q2H PRN PRN Reason: FOR HYPERTENSION MGMT Last Admin: 01/20/18 01:35 Dose: 10 mg Magnesium Hydroxide (Milk Of Magnesium) 30 ml PO BIDPRN PRN PRN Reason: Constipation Scopolamine (Transderm Scop) 1.5 mg TD Q3D SATURNINO Last Admin: 01/19/18 16:20 Dose: 1.5 mg Sodium Bicarbonate (Bicarbonate, Sodium) 650 mg PER TUBE .PER PROTOCOL PRN PRN Reason: ENTERAL TUBE OCCLUSION Sodium Chloride (Flush - Normal Saline) 10 ml IVF Q12HR SATURNINO Last Admin: 01/19/18 21:15 Dose: 10 ml Sodium Chloride (Flush - Normal Saline) 10 ml IVF PRN PRN PRN Reason: Saline Flush
[2018-01-20] MEDS: Famotidine/PF 20 mg/2ml Vial SLOW IVP SCH ×2 (08:37→22:25)
[2018-01-20] MEDS: cloNIDine 0.1 MG TAB PO SCH ×2 (08:37→21:21)
[2018-01-20 08:45] LABS: #Eosinphils 0.1 thou/uL (0.0-0.7); #Monocytes 0.7 thou/uL (0.11-0.59); #Neutrophils 6.1 thou/uL (1.40-6.50); %Basophils 0.4 % (0.0-1.0); %Eosinophils 0.7 % (0.0-10.0); %Lymphocytes 12.8 % (21.0-51.0); %Monocytes 8.7 % (0.0-10.0); %Neutrophils 77.4 % (42.0-75.0); Hemoglobin 14.3 g/dL (14.0-18.0); Mean Corpuscular HGB CONC 32.7 g/dL (32.0-36.0); Mean Corpuscular Hemoglobin 30.3 pg (27.0-31.0); Mean Corpuscular Volume 92.7 fL (78.0-98.0); Mean Platelet Volume 7.7 fL (7.4-10.4); Platelet Count 218 thou/uL (130-400); RBC Distribution Width 11.6 % (11.5-14.5); Red Blood Cell (RBC) Count 4.73 mill/uL (4.70-6.10); White Blood Cell (WBC) Count 7.9 thou/uL (4.8-10.8)
--- NOTE | 2018-01-20 08:46 | PRG ---
DATE OF SERVICE: 01/20/2018 He is status post cerebrovascular accident. PHYSICAL EXAMINATION: VITAL SIGNS: His sats are 97 on a trach collar. Pulse 75, blood pressure 130/82, temperature 99. A ll cultures are so far negative. CHEST: Bilateral rhonchi and crackles. CARDIAC: Normal S1, S2, no gallops. ABDOMEN: Soft. EXTREMITIES: No edema. LABORATORY: Last white count 9,000. Last chemistry profile shows normal renal function. IMPRESSION: 1. Intracerebral hemorrhage. 2. Status post trach and PEG. 3. Hypertension. PLAN: Pulmonary sotelo transfer out of the ICU to a monitored bed. Eventually placement. Continue PT and supportive care.
[2018-01-20 09:02] LABS: Anion Gap 13 mmol/L (10-20); BUN (Urea Nitrogen) 17 mg/dL (8.4-25.7); Calc. Creatinine Clearance 67 mL/min (70-130); Calcium 9.5 mg/dL (7.8-10.44); Carbon Dioxide 22 mmol/L (23-31); Chloride 113 mmol/L (98-107); Estimated GFR-MDRD 73; Glucose 151 mg/dL (83-110); Magnesium 2.3 mg/dL (1.6-2.6); Phosphorus 3.1 mg/dL (2.3-4.7); Potassium 3.9 mmol/L (3.5-5.1); Sodium 144 mmol/L (136-145)
[2018-01-20] MEDS: Sodium Chloride 0.9% 1,000 ML IV SCH (11:50)
--- NOTE | 2018-01-20 21:35 | PDOC.PN ---
- Subjective Encounter Start Date: 01/20/18 Encounter Start Time: 09:30 - Objective Vital Signs & Weight: Vital Signs (12 hours) Temp Pulse Resp BP BP Pulse Ox 01/20/18 21:21 144/81 H 01/20/18 19:20 99.2 F 77 26 H 166/97 H 95 01/20/18 18:23 65 22 H 97 01/20/18 16:26 99.5 F 68 24 H 95 01/20/18 16:02 99.5 F 68 24 H 155/86 H 95 01/20/18 12:44 69 20 98 01/20/18 12:00 100.5 F H Weight Admit Weight 193 lb 12.581 oz Weight 192 lb 14.472 oz Most Recent Monitor Data Heart Rate from ECG 70 NIBP 147/84 NIBP BP-Mean 92 Respiration from ECG 25 SpO2 95 I&O: 01/19/18 01/20/18 01/21/18 06:59 06:59 06:59 Intake Total 1902 6052 1838 Output Total 2 5 Balance 1900 2570 1835 Result Diagrams: 01/20/18 08:29 01/20/18 08:29 Phys Exam - Physical Examination Neck: no nodes, no JVD, supple, full ROM mild rhonchi all over Cardiovascular: RRR, no significant murmur, no rub, gallop, irregular right side facial droop and left side weakness Dx/Plan (1) Hemorrhagic stroke Code(s): I61.9 - NONTRAUMATIC INTRACEREBRAL HEMORRHAGE, UNSPECIFIED Status: Acute (2) HTN (hypertension) Code(s): I10 - ESSENTIAL (PRIMARY) HYPERTENSION Status: Acute (3) NISH (acute kidney injury) Code(s): N17.9 - ACUTE KIDNEY FAILURE, UNSPECIFIED Status: Acute (4) Acute electrocardiogram changes Code(s): R94.31 - ABNORMAL ELECTROCARDIOGRAM [ECG] [EKG] Status: Acute - Plan pt s/p trach and peg -: will continue abx for now * . Review of Systems - Review of Systems Other: unable to obtain - Medications/Allergies Allergies/Adverse Reactions: Allergies Allergy/AdvReac Type Severity Reaction Status Date / Time No Known Drug Allergies Allergy Verified 01/15/18 23:17 Medications: Current Medications Acetaminophen (Tylenol) 650 mg PO Q6H PRN PRN Reason: HEADACHE OR T >38.5 C Al Hydroxide/Mg Hydroxide (Maalox Plus) 30 ml PO QIDPRN PRN PRN Reason: Heartburn or Indigestion Albuterol/Ipratropium (Duoneb) 3 ml NEB [id number] SATURNINO Last Admin: 01/20/18 18:23 Dose: 3 ml Lipase/Protease/Amylase ([place] [id number]) 1 cap FS .PER PROTOCOL PRN PRN Reason: TUBE OCCLUSION PROTOCOL Bisacodyl (Dulcolax) 10 mg DE DAILYPRN PRN PRN Reason: Constipation Cefazolin Sodium (Ancef) 2 gm SLOW IVP WILLCALL SATURNINO Clonidine (Catapres) 0.1 mg PO BID SATURNINO Last Admin: 01/20/18 21:21 Dose: 0.1 mg Famotidine (Pepcid) 20 mg SLOW IVP Q12HR SATURNNIO Last Admin: 01/20/18 08:37 Dose: 20 mg Sodium Chloride (Normal Saline 0.9%) 1,000 mls @ 80 mls/hr IV INF SATURNINO Last Admin: 01/20/18 11:50 Dose: 1,000 mls Nicardipine HCl 25 mg/ Sodium (Chloride) 250 mls @ 0 mls/hr IVPB INF SATURNINO; Titrate PRN Reason: Protocol Piperacillin Sod/Tazobactam (Sod 3.375 gm/ Sodium Chloride) 100 mls @ 200 mls/ hr IVPB 0400,1000,1600,2200 SATURNINO Last Admin: 01/20/18 16:26 Dose: 100 mls Labetalol HCl (Normodyne) 10 mg SLOW IVP Q2H PRN PRN Reason: FOR HYPERTENSION MGMT Last Admin: 01/20/18 01:35 Dose: 10 mg Magnesium Hydroxide (Milk Of Magnesium) 30 ml PO BIDPRN PRN PRN Reason: Constipation Scopolamine (Transderm Scop) 1.5 mg TD Q3D SATURNINO Last Admin: 01/19/18 16:20 Dose: 1.5 mg Sodium Bicarbonate (Bicarbonate, Sodium) 650 mg PER TUBE .PER PROTOCOL PRN PRN Reason: ENTERAL TUBE OCCLUSION Sodium Chloride (Flush - Normal Saline) 10 ml IVF Q12HR SATURNINO Last Admin: 01/20/18 08:37 Dose: 10 ml Sodium Chloride (Flush - Normal Saline) 10 ml IVF PRN PRN PRN Reason: Saline Flush
[2018-01-21] MEDS: Piperacillin/Tazobactam 3.375 GM in Sodium Chloride 0.9% 100 ML IVPB SCH ×4 (04:17→21:45)
[2018-01-21] MEDS: Sodium Chloride 0.9% 1,000 ML IV SCH (04:17)
[2018-01-21 04:44] LABS: #Basophils 0.1 thou/uL (0.0-0.2); #Eosinphils 0.1 thou/uL (0.0-0.7); #Lymphocytes 0.9 thou/uL (1.20-3.40); #Monocytes 0.7 thou/uL (0.11-0.59); #Neutrophils 5.9 thou/uL (1.40-6.50); %Basophils 0.7 % (0.0-1.0); %Eosinophils 1.3 % (0.0-10.0); %Monocytes 8.9 % (0.0-10.0); Hemoglobin 14.9 g/dL (14.0-18.0); Mean Corpuscular HGB CONC 33.3 g/dL (32.0-36.0); Mean Corpuscular Volume 93.2 fL (78.0-98.0); Mean Platelet Volume 7.7 fL (7.4-10.4); Platelet Count 235 thou/uL (130-400); RBC Distribution Width 11.7 % (11.5-14.5); Red Blood Cell (RBC) Count 4.82 mill/uL (4.70-6.10); White Blood Cell (WBC) Count 7.6 thou/uL (4.8-10.8)
[2018-01-21 04:55] LABS: Anion Gap 13 mmol/L (10-20); BUN (Urea Nitrogen) 15 mg/dL (8.4-25.7); Calc. Creatinine Clearance 73 mL/min (70-130); Calcium 9.6 mg/dL (7.8-10.44); Carbon Dioxide 22 mmol/L (23-31); Chloride 113 mmol/L (98-107); Estimated GFR-MDRD 81; Glucose 164 mg/dL (83-110); Potassium 3.7 mmol/L (3.5-5.1); Sodium 144 mmol/L (136-145)
[2018-01-21] MEDS: cloNIDine 0.1 MG TAB PO SCH ×2 (09:10→21:45)
[2018-01-21] MEDS: Famotidine/PF 20 mg/2ml Vial SLOW IVP SCH ×2 (09:11→21:45)
--- NOTE | 2018-01-21 09:37 | RAD ---
PORTABLE CHEST: Date: 01-21-18 Provided Clinical History: Respiratory insufficiency. Comparison: 01-19-18 FINDINGS: Interval opacification of much of the left hemithorax. The examination is rotated, which limits evalu ation for mediastinal shift. The right lung remains clear. Tracheostomy appliance is again seen. Ther e is no evidence for pneumothorax. IMPRESSION: Interval development of opacification of much of the left hemithorax. Pleural and/or parenchymal opac ity could be considered. Follow up is recommended. POS: GORDON
[2018-01-21] MEDS ORDERED: Lidocaine 1% w/Epinephrine 1:100K 20 ML VIAL ONE (10:39)
--- NOTE | 2018-01-21 10:44 | PRG ---
DATE OF SERVICE: 01/21/2018 Ricci Verdin came back from a MRI. He has a brainstem hemorrhage. He remains encephalopathic. A copious amount of secretions. X-ray today shows a large left upper marizol ng pneumonia, atelectasis. PHYSICAL EXAMINATION: VITAL SIGNS: Temperature 98, blood pressure 144/81, respiration 20. CHEST: Chest revealed extensive rhonchi and crackles. CARDIAC: Normal S1, S2. ABDOMEN: Soft, no masses. White count is only 7000. IMPRESSION: 1. Left upper lung pneumonia. 2. Atelectasis. 3. Retained secretions. 4. Brainstem hemorrhage status post trach and PEG. PLAN: A diagnostic therapeutic bronchoscopy is being performed. In the meantime, continue antibioti cs, neb treatments, steroids. I will follow.
[2018-01-21] MEDS ORDERED: Furosemide 20 MG/2 ML VIAL SLOW IVP SCH (10:45)
[2018-01-21] MEDS: Budesonide 0.25 MG/2 ML NEB INH SCH ×2 (11:27→19:18)
--- NOTE | 2018-01-21 11:54 | MRI ---
BRAIN MRI WITH AND WITHOUT CONTRAST: CLINICAL HISTORY: Hemorrhagic stroke. Pontine hemorrhage. COMPARISON: Reference made to head CT from 01/18/2018. FINDINGS: There is intrinsic T1 hyperintensity centered at the level of the brainstem, involving the michael and m edulla. The degree of intrinsic T1 hyperintensity does preclude reliable evaluation for an enhancing underlying lesion, not discerned on the basis of this exam. There is no obvious enhancement beyond the confines of the intrinsic T1 intensity related to the brainstem hemorrhage. Otherwise, there is no additional enhancing intracranial lesion. There is evidence of mild chronic microvascular ischemic disease. Mild prominence of the ventricular system is present. There is no acute territorial infarction. Motion artifact is present throughout the exam, which does degrade image quality and thus limits the assessment. IMPRESSION: Hemorrhagic nidus, centered at the brainstem, involving the michael and medulla. The degree of intrinsi c T1 hyperintensity from hemorrhage does obscure the potential for an underlying enhancing lesion and , therefore, pre and post contrast brain MRI, as followup in six to eight weeks, is warranted, in ord er to exclude underlying mass as the etiologic source for a brainstem hemorrhage. Additional details are described above. POS: GORDON
--- NOTE | 2018-01-21 12:50 | OP ---
DATE OF PROCEDURE: 01/21/2018 SURGEON: Dr. Isidoro Carr PROCEDURE: Therapeutic bronchoscopy. INDICATION: Left upper lung atelectasis. POSTOPERATIVE DIAGNOSIS: Left upper lung atelectasis. PROCEDURE: After informed consent, the flexible bronchoscope then passed using adapter on the endotr acheal tube. On entering the distal trachea copious amounts of pus was seen completely occluding the left main stem bronchus. This was suctioned and lavaged until completely clear. Thereafter, the left lung was inspected, upper and lower lobe. Diffuse erythema was seen, but no fur ther endobronchial obstruction, blood or pus. Lidocaine 10 mL 1% was instilled for persistent coughi ng. The right lung was inspected thereafter. Right upper and lower lobes. No endobronchial obstruction, blood or pus was seen. Bronchoscope was removed. The patient was given adequate oxygenation. His sats remained in the high 90s. Bronchoscope was repassed again and both lungs were reinspected and l avaged until completely clear. The washings will be sent for Gram stain and C&S. The patient tolera dhruv the procedure well.
--- NOTE | 2018-01-21 13:53 | PDOC.PN ---
- Subjective Encounter Start Date: 01/21/18 Encounter Start Time: 10:30 Subjective: pt intubated - Objective Vital Signs & Weight: Vital Signs (12 hours) Temp Pulse Resp BP BP Pulse Ox 01/21/18 13:45 77 24 H 97 01/21/18 11:27 75 24 H 99 01/21/18 11:25 99.1 F 75 24 H 166/94 H 98 01/21/18 09:10 144/81 H 01/21/18 07:49 90 20 99 01/21/18 07:21 98.5 F 88 25 H 146/75 H 98 01/21/18 04:22 99.8 F H 88 18 131/77 98 Weight Admit Weight 193 lb 12.581 oz Weight 215 lb 6 oz Most Recent Monitor Data Heart Rate from ECG 70 NIBP 147/84 NIBP BP-Mean 92 Respiration from ECG 25 SpO2 95 I&O: 01/20/18 01/21/18 01/22/18 06:59 06:59 06:59 Intake Total 2424 3909 Output Total 5 Balance 1313 3909 Result Diagrams: 01/21/18 03:42 01/21/18 03:42 Phys Exam - Physical Examination Neck: no nodes, no JVD, supple, full ROM mild rhonchi all over Cardiovascular: RRR, no significant murmur, no rub, gallop, irregular Gastrointestinal: soft, non-tender, no distention, positive bowel sounds right facial droop and left side weakness Dx/Plan (1) Hemorrhagic stroke Code(s): I61.9 - NONTRAUMATIC INTRACEREBRAL HEMORRHAGE, UNSPECIFIED Status: Acute (2) HTN (hypertension) Code(s): I10 - ESSENTIAL (PRIMARY) HYPERTENSION Status: Acute (3) NISH (acute kidney injury) Code(s): N17.9 - ACUTE KIDNEY FAILURE, UNSPECIFIED Status: Acute (4) Acute electrocardiogram changes Code(s): R94.31 - ABNORMAL ELECTROCARDIOGRAM [ECG] [EKG] Status: Acute - Plan pt underwent bronchscopy, operative report indicated "pus". -: will continue abx for now, cx has been sent. pt is on feeding -: will need placement * . Review of Systems - Review of Systems Other: unable to obtain - Medications/Allergies Allergies/Adverse Reactions: Allergies Allergy/AdvReac Type Severity Reaction Status Date / Time No Known Drug Allergies Allergy Verified 01/15/18 23:17 Medications: Current Medications Acetaminophen (Tylenol) 650 mg PO Q6H PRN PRN Reason: HEADACHE OR T >38.5 C Al Hydroxide/Mg Hydroxide (Maalox Plus) 30 ml PO QIDPRN PRN PRN Reason: Heartburn or Indigestion Albuterol/Ipratropium (Duoneb) 3 ml NEB [id number] SATURNINO Last Admin: 01/21/18 13:45 Dose: 3 ml Lipase/Protease/Amylase ([place] Fry [id number]) 1 cap FS .PER PROTOCOL PRN PRN Reason: TUBE OCCLUSION PROTOCOL Bisacodyl (Dulcolax) 10 mg MS DAILYPRN PRN PRN Reason: Constipation Budesonide (Pulmicort Neb Solution) 0.25 mg INH [id number] SATURNINO Last Admin: 01/21/18 11:27 Dose: 0.25 mg Cefazolin Sodium (Ancef) 2 gm SLOW IVP WILLCALL SATURNINO Clonidine (Catapres) 0.1 mg PO BID SATURNINO Last Admin: 01/21/18 09:10 Dose: 0.1 mg Famotidine (Pepcid) 20 mg SLOW IVP Q12HR SATURNINO Last Admin: 01/21/18 09:11 Dose: 20 mg Nicardipine HCl 25 mg/ Sodium (Chloride) 250 mls @ 0 mls/hr IVPB INF SATURNINO; Titrate PRN Reason: Protocol Piperacillin Sod/Tazobactam (Sod 3.375 gm/ Sodium Chloride) 100 mls @ 200 mls/ hr IVPB 0400,1000,1600,2200 SATURNINO Last Admin: 01/21/18 10:52 Dose: 100 mls Labetalol HCl (Normodyne) 10 mg SLOW IVP Q2H PRN PRN Reason: FOR HYPERTENSION MGMT Last Admin: 01/20/18 01:35 Dose: 10 mg Magnesium Hydroxide (Milk Of Magnesium) 30 ml PO BIDPRN PRN PRN Reason: Constipation Scopolamine (Transderm Scop) 1.5 mg TD Q3D SATURNINO Last Admin: 01/19/18 16:20 Dose: 1.5 mg Sodium Bicarbonate (Bicarbonate, Sodium) 650 mg PER TUBE .PER PROTOCOL PRN PRN Reason: ENTERAL TUBE OCCLUSION Sodium Chloride (Flush - Normal Saline) 10 ml IVF Q12HR SATURNINO Last Admin: 01/21/18 09:15 Dose: 10 ml Sodium Chloride (Flush - Normal Saline) 10 ml IVF PRN PRN PRN Reason: Saline Flush
[2018-01-21] MEDS: Labetalol HCl 100 MG/20 ML VIAL SLOW IVP PRN (15:33)
[2018-01-22] MEDS: Budesonide 0.25 MG/2 ML NEB INH SCH ×3 (01:37→14:30)
[2018-01-22] MEDS: Piperacillin/Tazobactam 3.375 GM in Sodium Chloride 0.9% 100 ML IVPB SCH ×2 (04:50→09:52)
[2018-01-22] MEDS: cloNIDine 0.1 MG TAB PO SCH (09:52)
[2018-01-22] MEDS: Famotidine/PF 20 mg/2ml Vial SLOW IVP SCH (09:52)
--- NOTE | 2018-01-22 10:49 | PDOC.PN ---
- Objective Vital Signs & Weight: Vital Signs (12 hours) Temp Pulse Resp BP BP Pulse Ox 01/22/18 09:52 123/72 01/22/18 08:08 99.1 F 74 26 H 139/81 98 01/22/18 07:56 98.6 F 77 25 H 98 01/22/18 07:37 77 25 H 99 01/22/18 04:30 98.6 F 76 19 140/84 99 01/22/18 01:34 100 01/22/18 00:32 98.8 F 68 20 127/81 98 Weight Admit Weight 193 lb 12.581 oz Weight 215 lb 2 oz Most Recent Monitor Data Heart Rate from ECG 70 NIBP 147/84 NIBP BP-Mean 92 Respiration from ECG 25 SpO2 95 I&O: 01/21/18 01/22/18 01/23/18 06:59 06:59 06:59 Intake Total 3909 586 900 Balance 3909 586 900 Result Diagrams: 01/21/18 03:42 01/21/18 03:42 Dx/Plan (1) Pneumonia Code(s): J18.9 - PNEUMONIA, UNSPECIFIED ORGANISM Status: Acute (2) NISH (acute kidney injury) Code(s): N17.9 - ACUTE KIDNEY FAILURE, UNSPECIFIED Status: Acute (3) Acute electrocardiogram changes Code(s): R94.31 - ABNORMAL ELECTROCARDIOGRAM [ECG] [EKG] Status: Acute (4) HTN (hypertension) Code(s): I10 - ESSENTIAL (PRIMARY) HYPERTENSION Status: Acute (5) Hemorrhagic stroke Code(s): I61.9 - NONTRAUMATIC INTRACEREBRAL HEMORRHAGE, UNSPECIFIED Status: Acute - Plan * . Review of Systems - Review of Systems Constitutional: chills - Medications/Allergies Allergies/Adverse Reactions: Allergies Allergy/AdvReac Type Severity Reaction Status Date / Time No Known Drug Allergies Allergy Verified 01/15/18 23:17 Medications: Current Medications Acetaminophen (Tylenol) 650 mg PO Q6H PRN PRN Reason: HEADACHE OR T >38.5 C Al Hydroxide/Mg Hydroxide (Maalox Plus) 30 ml PO QIDPRN PRN PRN Reason: Heartburn or Indigestion Albuterol/Ipratropium (Duoneb) 3 ml NEB [id number] SATURNINO Last Admin: 01/22/18 07:37 Dose: 3 ml Lipase/Protease/Amylase ([place] [id number]) 1 cap FS .PER PROTOCOL PRN PRN Reason: TUBE OCCLUSION PROTOCOL Bisacodyl (Dulcolax) 10 mg GA DAILYPRN PRN PRN Reason: Constipation Budesonide (Pulmicort Neb Solution) 0.25 mg INH [id number] SATURNINO Last Admin: 01/22/18 07:37 Dose: 0.25 mg Cefazolin Sodium (Ancef) 2 gm SLOW IVP WILLCALL SATURNINO Clonidine (Catapres) 0.1 mg PO BID SATURNINO Last Admin: 01/22/18 09:52 Dose: 0.1 mg Famotidine (Pepcid) 20 mg SLOW IVP Q12HR SATURNINO Last Admin: 01/22/18 09:52 Dose: 20 mg Nicardipine HCl 25 mg/ Sodium (Chloride) 250 mls @ 0 mls/hr IVPB INF SATURNINO; Titrate PRN Reason: Protocol Piperacillin Sod/Tazobactam (Sod 3.375 gm/ Sodium Chloride) 100 mls @ 200 mls/ hr IVPB 0400,1000,1600,2200 SATURNINO Last Admin: 01/22/18 09:52 Dose: 100 mls Labetalol HCl (Normodyne) 10 mg SLOW IVP Q2H PRN PRN Reason: FOR HYPERTENSION MGMT Last Admin: 01/21/18 15:33 Dose: 10 mg Magnesium Hydroxide (Milk Of Magnesium) 30 ml PO BIDPRN PRN PRN Reason: Constipation Scopolamine (Transderm Scop) 1.5 mg TD Q3D SATURNINO Last Admin: 01/19/18 16:20 Dose: 1.5 mg Sodium Bicarbonate (Bicarbonate, Sodium) 650 mg PER TUBE .PER PROTOCOL PRN PRN Reason: ENTERAL TUBE OCCLUSION Sodium Chloride (Flush - Normal Saline) 10 ml IVF Q12HR SATURNINO Last Admin: 01/22/18 09:53 Dose: 10 ml Sodium Chloride (Flush - Normal Saline) 10 ml IVF PRN PRN PRN Reason: Saline Flush Last Admin: 01/22/18 04:51 Dose: 10 ml
--- NOTE | 2018-01-22 12:19 | PRG ---
DATE OF SERVICE: 01/22/2018 SUBJECTIVE: This morning, he still has a lot of secretions. Large volume of secretions and pus were aspirated yesterday following the bronch. OBJECTIVE: VITAL SIGNS: Temperature 98 on a trach collar on room air, respirations 26, , blood pressure 13 0/81. CHEST: Revealed decreased breath sounds without any wheezing. CARDIAC: Normal S1, S2, no gallops. ABDOMEN: Soft, no masses. IMPRESSION: 1. Status post cerebrovascular accident. 2. Hemorrhagic brainstem hemorrhage. 3. Hypertension. PLAN: He is status post trach and PEG. Continue him on supportive care. He is on Zosyn, neb treatm ents. I will follow. Eventually placement.
[2018-01-22 12:34] VITALS: BP 143/89; TEMP 98.9
[2018-01-22 13:09] VITALS: BMI 29.9
[2018-01-22] MEDS: Scopolamine 1.5 mg/72 hour Patch TD SCH (14:50)
--- NOTE | 2018-01-24 00:38 | DIS ---
DATE OF DISCHARGE: 01/22/2018 CHIEF COMPLAINT: Hemorrhagic stroke. DISCHARGE DIAGNOSES: 1. Hemorrhagic stroke x2. 2. Hypertension. 3. Acute kidney injury. 4. Acute electrocardiogram changes. HOSPITAL COURSE: A 77-year-old -[place] male who came in with some focal neurologic deficits . The patient was found to have intracranial hemorrhage; therefore, the patient was sent to the ICU under Neurosurgery consult. 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 Babita sheth was then trached, and a trach collar was placed, PEG tube was also placed as well. The patient was monitored and supportive care was done on the patient. Patient started to feel better. PT was orde red for the patient and attending physician group gathered and spoke to the patient's family regardin g the patient's prognosis, which supposedly is poor. Therefore, patient was arranged to follow up at the LTAC, so the patient can better receive care over at the LTAC due to patient's poor prognosis. DISCHARGE MEDICATIONS: Kindly refer to the patient's electronic medical records for the discharge me dications. LABORATORY DATA: 1. On admission, the patient's white count was 4.4 and it trended up to 10 and trended back down and stabilized around 7. Hemoglobin was stable around 15. Platelets were stable around 200. 2. Chemistry: Patient's sodium was stable around 140. Chloride was stable around 110. Patient's b icarbonate was stable around 22. Patient's creatinine was stable around 1.15. Patient did not have any electrolyte abnormalities. Patient's ABG showed pH of 7.3, pCO2 of 43, PO2 of 76. 3. CT of the head showed intracranial hemorrhage. DISPOSITION: Patient was discharged and transferred to an LTAC at [facility]. We spoke to the [facility] extensively regarding the patient's prognosis. Everything was made clear to the family about dwayne loera's poor prognosis due to pontine intracranial hemorrhage. PROGRESS NOTE: SUBJECTIVE: The patient was seen and examined by me. The patient is lying in bed. Patient is movin g his right upper extremity better than the left upper extremity. Patient seemed to have some weakne ss in the lower extremity, but patient is able to wiggle his toes. Patient is currently on a trach c ollar. Patient is able to open his eyes spontaneously. VITAL SIGNS: Vitals are within normal limits. LABORATORY DATA: Labs seem to be in stable condition. ASSESSMENT AND PLAN: Refer to the discharge diagnoses. This case has been discussed by Dr. Tank Russo.
== END 2018-01-22 16:01 | disposition short-term general hospital (02) | DRG 4 ==
LOC: ERS 15:55 → CCU 22:41 → IMCU/EMU 01-20 15:58
PROVIDERS: ADMIT Family Medicine; ATTEND Family Medicine
PROC: 0B113F4 Bypass Trachea to Cutaneous with Tracheostomy Device, Percutaneous Approach (ICD-10-PCS; principal; 2018-01-18)
PROC: 0DH63UZ Insertion of Feeding Device into Stomach, Percutaneous Approach (ICD-10-PCS; 2018-01-18)
PROC: 0BJ08ZZ Inspection of Tracheobronchial Tree, Via Natural or Artificial Opening Endoscopic (ICD-10-PCS; 2018-01-21)
DX: I61.3 Nontraumatic intracerebral hemorrhage in brain stem (principal); J18.9 Pneumonia, unspecified organism; J98.11 Atelectasis; N17.9 Acute kidney failure, unspecified; G81.91 Hemiplegia, unspecified affecting right dominant side; G81.94 Hemiplegia, unspecified affecting left nondominant side; I10 Essential (primary) hypertension; R13.10 Dysphagia, unspecified; R29.810 Facial weakness; R47.81 Slurred speech; F17.210 Nicotine dependence, cigarettes, uncomplicated; R40.2413 Glasgow coma scale score 13-15, at hospital admission
CPT/HCPCS: 36415; 36416; 70450; 70553; 71045; 80048; 80053; 82553; 82805; 83735; 84100; 84484; 85025; 85610; 85730; 87070; 87205; 93005; 93010; 93306; 93970; 94002; 94003; 94640; A4216; G8978-GP-CM; G8979-GP-CK; G8987-GO-CM; G8988-GO-CK; G8996-GN-CN; G8997-GN-CI; J0131; J1940; J2001; J2543; J2704; J3010; J7050; J7620; J7626; S0028